=== PATIENT | male | born 1990 | race African-American/Black ===

== ENCOUNTER 2018-09-11 14:45 | Emergency (ER) | payer SELFPAY ==
[~2018-09-11] VITALS: Ht 185.4 cm; Wt 81.6 kg
--- NOTE | 2018-09-11 15:15 | NUR ---
Ian Rene NP evaluating pt.
[2018-09-11] MEDS ORDERED: ORPHENADRINE CITRATE 30 MG/ML VIAL IM ONE (15:30)
[2018-09-11] MEDS ORDERED: KETOROLAC TROMETHAMINE 60 MG/2 ML VIAL IM ONE (15:30)
[2018-09-11] MEDS ORDERED: DEXAMETHASONE SOD PHOS 10 MG/1 ML VIAL IM ONE (15:30)
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
== END 2018-09-11 18:25 | disposition home or self-care (01) ==
LOC: ER 14:45
DX: S00.83XA Contusion of other part of head, initial encounter (principal); S00.12XA Contusion of left eyelid and periocular area, initial encounter; M54.6 Pain in thoracic spine; M54.5 Low back pain; S23.3XXA Sprain of ligaments of thoracic spine, initial encounter; S33.5XXA Sprain of ligaments of lumbar spine, initial encounter; V43.52XA Car driver injured in collision with other type car in traffic accident, initial encounter; Y92.488 Other paved roadways as the place of occurrence of the external cause
CPT/HCPCS: 70450; 70486; 71101; 72110; 72125; 99283; J1100; J1885; J2360

== ENCOUNTER 2018-11-03 22:55 | Emergency (ER) | payer SELFPAY ==
[~2018-11-03] VITALS: Ht 185.4 cm; Wt 81.6 kg
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
[2018-11-03] MEDS ORDERED: AZITHROMYCIN 250 MG TAB PO ONE (23:15)
[2018-11-03] MEDS ORDERED: CEFTRIAXONE SOD 250 MG VIAL IM ONE (23:15)
[2018-11-03] MEDS ORDERED: AZITHROMYCIN 250 MG TAB ONE (23:22)
== END 2018-11-03 23:45 | disposition home or self-care (01) ==
LOC: FSED 22:55
DX: R30.0 Dysuria (principal); N30.91 Cystitis, unspecified with hematuria; A54.01 Gonococcal cystitis and urethritis, unspecified; A56.01 Chlamydial cystitis and urethritis
CPT/HCPCS: 81003; 99283

== ENCOUNTER 2018-11-16 08:17 | Emergency (ER) | payer SELFPAY ==
[~2018-11-16] VITALS: Ht 185.4 cm; Wt 81.6 kg
[2018-11-16] MEDS ORDERED: LIDOCAINE HCL 2% LOCAL 20 ML VIAL ONE (08:44)
[2018-11-16] MEDS ORDERED: CEFTRIAXONE SOD 1 GM VIAL IM ONE (08:45)
== END 2018-11-16 08:50 | disposition home or self-care (01) ==
LOC: FSED 08:17
DX: N50.811 Right testicular pain (principal); A56.01 Chlamydial cystitis and urethritis; N45.1 Epididymitis
CPT/HCPCS: 81003; 99283; J0696; J2001